=== PATIENT | female | born 1985 | race Two or more races ===

== ENCOUNTER 2017-07-12 17:57 | Emergency (ER) | payer BC, OTHER ==
[~2017-07-12] VITALS: Ht 167.6 cm; Wt 79.4 kg
--- NOTE | 2017-07-12 18:20 | NUR ---
Dr Coy at the bedside for eval and exam.
--- NOTE | 2017-07-12 19:03 | NUR ---
Report taken from day shift RN. Assuming care at this time.
[2017-07-12 19:54] VITALS: BP 126/72
--- NOTE | 2017-07-12 19:54 | NUR ---
Patient discharged to home in stable conditon. Written and verbal after care instructions given. Patient verbalizes understanding of instructions. No distress noted. Ambulated w/ steady gait.
== END 2017-07-12 19:55 | disposition home or self-care (01) ==
LOC: ER 18:05
DX: S46.001A Unspecified injury of muscle(s) and tendon(s) of the rotator cuff of right shoulder, initial encounter (principal); Z88.2 Allergy status to sulfonamides; W18.30XA Fall on same level, unspecified, initial encounter; Y92.89 Other specified places as the place of occurrence of the external cause; Y93.89 Activity, other specified; Y99.8 Other external cause status
CPT/HCPCS: 73030; A4663